=== PATIENT | male | born 1995 | race Asian ===

== ENCOUNTER 2017-03-20 08:40 | Emergency (ER) | payer OTHER ==
[2017-03-20 08:41] VITALS: BP 143/82; PULSE 123; RESP 16; TEMP 98.3; O2SAT 99
[2017-03-20 09:10] VITALS: PULSE 98
[2017-03-20] MEDS ORDERED: ROBA500T PO (09:10)
[2017-03-20] MEDS ORDERED: IBUP800T23 PO (09:10)
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
[2017-03-20] MEDS ORDERED: IBUPROFEN 800 MG TAB PO ONE (09:15)
== END 2017-03-20 09:27 | disposition home or self-care (01) ==
LOC: NEPK 08:40
DX: M25.521 Pain in right elbow (principal); M25.522 Pain in left elbow; V49.9XXA Car occupant (driver) (passenger) injured in unspecified traffic accident, initial encounter
CPT/HCPCS: 99283